=== PATIENT | female | born 1965 | race Asian ===

== ENCOUNTER 2017-12-18 22:22 | Emergency (ER) | payer MEDICAID ==
[~2017-12-18] VITALS: Ht 160 cm; Wt 68.0 kg
[~2017-12-18 22:22] MED LIST: ACETAMINOPHEN 325 MG; AMOX-277; CETI10TA93; FLUT50SP13; NAPR500T31; PROMETHAZINE 6.25 MG/5 ML; SULF-169; TRIO1TP
[2017-12-19 00:31] VITALS: BP 115/70
== END 2017-12-19 02:05 | disposition home or self-care (01) ==
LOC: ER 22:35
DX: Z42.8 Encounter for other plastic and reconstructive surgery following medical procedure or healed injury (principal); T81.89XD Other complications of procedures, not elsewhere classified, subsequent encounter; Z48.02 Encounter for removal of sutures

== ENCOUNTER 2018-04-27 11:17 | Inpatient (IN) | payer MEDICAID ==
[~2018-04-27] VITALS: Ht 162.6 cm; Wt 72.0 kg
[2018-04-27] MEDS ORDERED: ASPirin 81 mg TAB PO ONE ×3 (11:30→15:00)
[2018-04-27] MEDS ORDERED: PANTOPRAZOLE 40 MG/10 ML VIAL IV ONE (11:45)
[2018-04-27] MEDS ORDERED: SODIUM CHLORIDE 0.9% 1,000 ML IV ONE (11:45)
[2018-04-27 12:22] LABS: Basophils # (auto) 0 uL; Basophils % (auto) 0.2 % (0.0-2.0); Eosinophils # (auto) 0.1 uL; Eosinophils % (auto) 2.2 % (0.0-7.0); Hemoglobin 14.2 g/dL (12.2-16.2); Lymphocytes # (auto) 2.3 uL; Lymphocytes % (auto) 35.2 % (10.0-50.0); Mean Corpuscular Hemoglobin 29.7 pg (28.0-32.0); Mean Corpuscular Hgb Conc. 33.1 g/dL (32.0-36.0); Mean Corpuscular Volume 89.6 fL (80.0-100.0); Monocytes # (auto) 0.4 uL; Monocytes % (auto) 6.7 % (0.0-12.0); Neutrophils # (auto) 3.7 uL; Neutrophils % (auto) 55.7 % (37.0-80.0); Nucleated Red Blood Cells % 0.1 %; Platelet Count (auto) 273 10^3/uL (140-450); Red Cell Distribution Width 13.7 % (11.8-14.3); White Blood Cell 6.6 10^3/uL (4.4-10.8)
[2018-04-27 12:33] LABS: Albumin 3.5 g/dL (3.4-5.0); Calcium 8.4 mg/dL (8.5-10.1); Magnesium 2.3 mg/dL (1.6-2.6); Potassium 3.9 mmol/L (3.5-5.1)
[2018-04-27 12:35] LABS: BUN/Creatinine Ratio 20.3
[2018-04-27 12:37] LABS: INR 0.94 (0.9-1.15); Partial Thromboplastin Time 26.6 sec (23.78-33.04); Prothrombin Time 10.1 sec (9.27-12.13)
[2018-04-27 12:40] LABS: Bilirubin, Total 0.5 mg/dL (0.2-1.0); Total Protein 7.6 g/dL (6.4-8.2)
[2018-04-27 12:42] LABS: Urine Bacteria NONE SEEN /hpf (None Seen); Urine Blood Negative /uL (Negative); Urine Specific Gravity 1.007 (1.001-1.035); Urine WBC <1 /hpf (0 - 5)
[2018-04-27] MEDS ORDERED: ONDANSETRON HCL 4 MG/2 ML VIAL IV ONE (13:00)
[2018-04-27] MEDS ORDERED: MORPHINE SULF INJ 2 MG/ML SYRINGE 1ML IV ONE ×3 (13:00→14:30)
[2018-04-27] MEDS ORDERED: MORPHINE SULF INJ 2 MG/ML SYRINGE 1ML ONE (13:02)
[2018-04-27] MEDS ORDERED: NITROGLYCERIN 0.4 MG SL TAB SL ONE (14:30)
[2018-04-27] MEDS ORDERED: traMADol HCL 50 MG TAB PO PRN (14:45)
[2018-04-27] MEDS ORDERED: MORPHINE SULF INJ 2 MG/ML SYRINGE 1ML IV PRN (14:45)
[2018-04-27] MEDS ORDERED: LORazepam 0.5 MG TAB PO PRN (14:45)
[2018-04-27] MEDS ORDERED: KETOROLAC TROMETH 30 MG/ML 1ML VIAL IV PRN (14:45)
[2018-04-27] MEDS ORDERED: TEMAZEPAM 15 MG CAP PO PRN (14:45)
[2018-04-27] MEDS ORDERED: NITROGLYCERIN 0.4 MG SL TAB SL PRN (14:45)
[2018-04-27] MEDS ORDERED: LACTULOSE 20Gm/30ML SOLN PO PRN (14:45)
[2018-04-27] MEDS ORDERED: ACETAMINOPHEN 500 MG TAB PO PRN (14:45)
[2018-04-27] MEDS ORDERED: NITROGLYCERIN 0.2MG/HR TOPICAL PATCH TD ONE (15:00)
[2018-04-27] MEDS ORDERED: METOPROLOL TARTRATE 25 MG TAB PO ONE (15:00)
[2018-04-27] MEDS ORDERED: ENOXAPARIN SOD 40 MG/0.4 ML SYRINGE SC ONE (15:00)
[2018-04-27] MEDS ORDERED: ATORVASTATIN 20 MG TAB PO ONE (15:15)
[2018-04-27] MEDS: ONDANSETRON HCL 4 MG/2 ML VIAL IV PRN ×2 (18:54→22:47)
[2018-04-27 21:00] VITALS: BP 108/67
[2018-04-27] MEDS: ATORVASTATIN 20 MG TAB PO SCH (21:23)
[2018-04-27] MEDS: METOPROLOL TARTRATE 25 MG TAB PO SCH (21:24)
[2018-04-28 00:54] VITALS: BP 108/67
[2018-04-28] MEDS ORDERED: ATEN-60 PO (03:41)
[2018-04-28] MEDS ORDERED: ATOR10TA PO (03:41)
[2018-04-28 05:54] VITALS: BP 95/58
[2018-04-28 07:25] LABS: Cholesterol 125 mg/dL (< 200); HDL Cholesterol 45 mg/dL (40-59); LDL Cholesterol 80 mg/dL (< 100); Triglycerides 79 mg/dL (< 150)
[2018-04-28 08:40] VITALS: BP 99/64
[2018-04-28] MEDS: ASPirin 81 mg TAB PO SCH (10:00)
[2018-04-28] MEDS: METOPROLOL TARTRATE 25 MG TAB PO SCH ×2 (10:00→22:28)
[2018-04-28] MEDS: NITROGLYCERIN 0.2MG/HR TOPICAL PATCH TD SCH (10:30)
[2018-04-28] MEDS: ENOXAPARIN SOD 40 MG/0.4 ML SYRINGE SC SCH (10:30)
[2018-04-28 13:00] VITALS: BP 100/56
[2018-04-28] MEDS ORDERED: ASPI81CH43 PO (14:15)
[2018-04-28 17:13] VITALS: BP 109/66
[2018-04-28 22:00] VITALS: BP 98/54
[2018-04-28] MEDS: ATORVASTATIN 20 MG TAB PO SCH (22:28)
[2018-04-29 05:30] VITALS: BP 105/61
[2018-04-29 09:00] VITALS: BP 104/54
[2018-04-29] MEDS: METOPROLOL TARTRATE 25 MG TAB PO SCH ×2 (09:42→21:01)
[2018-04-29] MEDS: ASPirin 81 mg TAB PO SCH ×2 (09:42→09:49)
[2018-04-29] MEDS: NITROGLYCERIN 0.2MG/HR TOPICAL PATCH TD SCH (09:43)
[2018-04-29] MEDS: ENOXAPARIN SOD 40 MG/0.4 ML SYRINGE SC SCH (09:50)
[2018-04-29 10:23] VITALS: BP 109/64
[2018-04-29] MEDS ORDERED: NITROGLYCERIN 0.4 MG SL TAB SL ONE (11:06)
[2018-04-29] MEDS ORDERED: IODIXANOL 320MG/ML 100ML BTL IV ONE ×2 (11:38→12:32)
[2018-04-29] MEDS ORDERED: LIDOCAINE 2% (LOCAL ANESTH.) PF 5ml SDV ONE (11:38)
[2018-04-29] MEDS ORDERED: ASPirin 325 MG TAB ONE (11:52)
[2018-04-29] MEDS ORDERED: VERAPAMIL 2.5MG/ML INJ 2ML VIAL IV ONE (12:00)
[2018-04-29] MEDS ORDERED: ANGIOMAX 250 MG VIAL IV ONE (12:00)
[2018-04-29] MEDS ORDERED: fentaNYL CITRATE 100 MCG/2 ML VL ONE (12:00)
[2018-04-29] MEDS ORDERED: SODIUM CHL 0.9% 50 ML ONE (12:01)
[2018-04-29] MEDS ORDERED: MIDAZOLAM HCL 1MG/1ML-2 ML VIAL ONE (12:01)
[2018-04-29] MEDS ORDERED: EPTIFIBATIDE INJ (2MG/ML) 10ML VIAL IV ONE (12:19)
[2018-04-29] MEDS ORDERED: PRASUGREL HCL 10 MG TAB ONE ×2 (12:38→12:40)
[2018-04-29 17:00] VITALS: BP 114/39
[2018-04-29 17:05] VITALS: BP 106/70
[2018-04-29] MEDS: ATORVASTATIN 20 MG TAB PO SCH (21:01)
[2018-04-29 21:40] VITALS: BP 117/71
[2018-04-30 04:45] VITALS: BP 113/67
[2018-04-30] MEDS ORDERED: ATOR20TA50 PO (08:48)
[2018-04-30] MEDS ORDERED: CLOP75TA41 PO (08:48)
[2018-04-30] MEDS ORDERED: MET25T PO (08:48)
[2018-04-30 09:00] VITALS: BP 122/83
[2018-04-30 09:30] VITALS: BP 103/48
[2018-04-30] MEDS: ASPirin 81 mg TAB PO SCH (09:57)
[2018-04-30] MEDS: NITROGLYCERIN 0.2MG/HR TOPICAL PATCH TD SCH (09:58)
[2018-04-30] MEDS: ENOXAPARIN SOD 40 MG/0.4 ML SYRINGE SC SCH (09:58)
[2018-04-30] MEDS: METOPROLOL TARTRATE 25 MG TAB PO SCH (09:58)
[2018-04-30] MEDS ORDERED: PRASUGREL HCL 10 MG TAB PO SCH (10:00)
== END 2018-04-30 11:10 | disposition home or self-care (01) | DRG 175 ==
LOC: EDBD 11:17 → ER 11:17 → EDUNIT# 11:17 → TELE 11:18 → TELE-CENTR 19:58
PROVIDERS: ADMIT Internal Medicine; ATTEND Internal Medicine
PROC: 4A023N7 Measurement of Cardiac Sampling and Pressure, Left Heart, Percutaneous Approach (ICD-10-PCS; principal; 2018-04-29)
PROC: 027034Z Dilation of Coronary Artery, One Artery with Drug-eluting Intraluminal Device, Percutaneous Approach (ICD-10-PCS; 2018-04-29)
PROC: B2111ZZ Fluoroscopy of Multiple Coronary Arteries using Low Osmolar Contrast (ICD-10-PCS; 2018-04-29)
DX: I24.9 Acute ischemic heart disease, unspecified (principal); I21.4 Non-ST elevation (NSTEMI) myocardial infarction; I50.31 Acute diastolic (congestive) heart failure; I25.10 Atherosclerotic heart disease of native coronary artery without angina pectoris; E78.5 Hyperlipidemia, unspecified; I11.0 Hypertensive heart disease with heart failure; Z79.02 Long term (current) use of antithrombotics/antiplatelets
CPT/HCPCS: 36415; 70450; 71045; 80053; 80061; 81001; 82550; 83735; 83880; 84443; 84484; 85025; 85379; 85610; 85652; 85730; 86141; 92928; 93005; 93017; 93306; 93458; 94761; 96361; 96372; 96374; 96375; 99152; A6257; C1874; C9113; J2001; J2250; J2405; Q9967

== ENCOUNTER 2019-08-12 20:11 | Emergency (ER) | payer MEDICAID ==
[~2019-08-12 20:11] MED LIST changes: -ACETAMINOPHEN 325 MG; -AMOX-277; +ASPI81CH43 PO; +ATOR20TA50 PO; -CETI10TA93; +CLOP75TA41 PO; -FLUT50SP13; +MET25T PO; -NAPR500T31; -PROMETHAZINE 6.25 MG/5 ML; -SULF-169; -TRIO1TP
== END 2019-08-12 20:50 | disposition left against medical advice (07) ==
LOC: ER 20:17
DX: R05 Cough (principal); Z53.21 Procedure and treatment not carried out due to patient leaving prior to being seen by health care provider